=== PATIENT | male | born 1965 | race Caucasian/White ===

== ENCOUNTER 2019-09-09 13:31 | Emergency (ER) | payer BC ==
[2019-09-09 14:09] VITALS: BP 140/91; PULSE 90
--- NOTE | 2019-09-09 14:15 | EDM.PDOC ---
ED HPI GENERAL MEDICAL PROBLEM - General Chief Complaint: Headache Stated Complaint: SINUS INFECTION Time Seen by Provider: 09/09/19 14:14 Source of Information: Reports: Patient - History of Present Illness INITIAL COMMENTS - FREE TEXT/NARRATIVE: Very pleasant 54 yo male presents with 2 months of illness including vague mid to lower back pain, right elbow pain (likely repetitive use vs gout), headache, mild cough and sinus pressure and congestion. Patient has history of cough due to cholesterol medications to treat his elevated triglycerides. Patient was treated with Prednisone and did well 2 months ago. Patient had been taking OTC allergy medications to prevent infection/sinus concerns until the last 2 months. Patient has been fleeing under the weather for 2 months but has noted chills and sweats. Patient had a severe left temporal headache last night in bed which was the worst headache of his life (even worse than before infections/ surgery). Patient does not know of any aneurysm or intracranial abnormalities from previous studies but were a number of years ago. Face/Facial Pain Score (Numeric/FACES): 8 - Related Data Allergies Allergy/AdvReac Type Severity Reaction Status Date / Time No Known Allergies Allergy Verified 09/09/19 14:06 Home Meds: Home Meds Lisinopril [Prinivil] 10 mg PO DAILY 03/04/14 [History] Omeprazole Magnesium [Prilosec] 10 mg PO DAILY 03/04/14 [History] Amoxicillin/Clavulanate K [Augmentin 875-125 MG] 1 tab PO BID 10 Days #20 tablet 09/09/19 [Rx] Past Medical History HEENT History: Reports: Sinusitis Musculoskeletal History: Reports: Back Pain, Chronic - Past Surgical History HEENT Surgical History: Reports: Naso-Sinus Surgery Social & Family History - Tobacco Use Smoking Status *Q: Never Smoker ED ROS GENERAL - Review of Systems Review Of Systems: ROS reveals no pertinent complaints other than HPI. - Physical Exam Exam: See Below Exam Limited By: No Limitations General Appearance: Alert, WD/WN, Mild Distress Eye Exam: Bilateral Eye: EOMI, PERRL Ears: Normal External Exam (Left normal Right fullness noted. Slight pain behind right ear without erythema), Normal Canal, Hearing Grossly Normal Nose: Normal Inspection, Normal Mucosa, No Blood Throat/Mouth: Normal Inspection, Normal Lips, Normal Teeth, Normal Gums, Normal Oropharynx, Normal Voice, No Airway Compromise Head Exam: Atraumatic, Normocephalic, Facial Tenderness (left maxilla). No: Scalp Swelling, Scalp Tenderness (over left episcopal) Neck: Normal Inspection, Non-Tender, Full Range of Motion. No: Carotid Bruit Respiratory/Chest: No Respiratory Distress, Lungs Clear, Normal Breath Sounds Cardiovascular: Normal Peripheral Pulses, Regular Rate, Rhythm GI/Abdominal: Normal Bowel Sounds, Soft, Non-Tender Neuro Exam (Abbreviated): Alert, Oriented, CN II-XII Intact, Normal Cognition, Normal Gait, Normal Reflexes, No Motor/Sensory Deficits Back Exam: Normal Inspection, Full Range of Motion, NT Extremities: Normal Inspection, Normal Range of Motion, Non-Tender, No Pedal Edema, Normal Capillary Refill Psychiatric: Normal Affect, Normal Mood Skin Exam: Warm, Dry, Intact, Normal Color, No Rash Course - Vital Signs Last Recorded V/S: Last Vital Signs Temp 36.8 C 09/09/19 14:16 Pulse 90 09/09/19 14:16 Resp 17 09/09/19 14:16 BP 140/91 H 09/09/19 14:16 Pulse Ox 97 09/09/19 14:16 - Orders/Labs/Meds Orders: Active Orders 24 hr Category Date Time Status Max Facial Sinus wo Cont [CT] Stat Exams 09/09/19 14:46 Taken Labs: Laboratory Tests 09/09/19 09/09/19 Range/Units 15:02 15:02 WBC 8.3 (4.5-11.0) K/uL RBC 5.15 (4.30-5.90) M/uL Hgb 15.6 H (12.0-15.0) g/dL Hct 46.1 (40.0-54.0) % MCV 90 (80-98) fL MCH 30 (27-31) pg MCHC 34 (32-36) % Plt Count 198 (150-400) K/uL Neut % (Auto) 66 (36-66) % Lymph % (Auto) 20 L (24-44) % [place] % (Auto) 11 H (2-6) % Eos % (Auto) 3 (2-4) % Baso % (Auto) 0 (0-1) % ESR 10 (0-20) mm/hr Sodium 142 (140-148) mmol/L Potassium 4.1 (3.6-5.2) mmol/L Chloride 104 (100-108) mmol/L Carbon Dioxide 29 (21-32) mmol/L Anion Gap 9.1 (5.0-14.0) mmol/L BUN 10 (7-18) mg/dL Creatinine 0.9 (0.8-1.3) mg/dL Est Cr Clr Drug Dosing 101.10 mL/min Estimated GFR (MDRD) > 60 (>60) Glucose 112 H (74-106) mg/dL Calcium 8.8 (8.5-10.1) mg/dL Total Bilirubin 0.6 (0.2-1.0) mg/dL AST 14 L (15-37) U/L ALT 29 (12-78) U/L Alkaline Phosphatase 74 (46-116) U/L C-Reactive Protein 1.64 H (0.0-0.3) mg/dL Total Protein 6.8 (6.4-8.2) g/dL Albumin 3.7 (3.4-5.0) g/dL Globulin 3.1 (2.3-3.5) g/dL Albumin/Globulin Ratio 1.2 (1.2-2.2) Lipase 133 (73-393) U/L - Radiology Interpretation Free Text/Narrative:: CT Head: No acute intracranial abnormality to explain patient's symptoms. CT Max/Facial: Right OM and fluid in right mastoid air cells with possible mastoiditis. Chronic sinus mucosal fullness noted right greater than left. - Re-Assessments/Exams Free Text/Narrative Re-Assessment/Exam: Reviewed laboratory test results which are as expected with acute on chronic sinusitis with systemic symptoms elevated CRP, normal WBC, Normal renal, liver and pancreatitis testing. Radiology contacted regarding CT Head and Max/Facial to ensure completion. Patient left for CT a time of test review with . 09/09/19 16:00 Departure - Departure Time of Disposition: 17:00 Disposition: Home, Self-Care 01 Clinical Impression: Acute sinus infection, Sinusitis, Migraine, Otitis media, Mastoiditis, Cluster headache syndrome - Discharge Information Prescriptions: Amoxicillin/Clavulanate K [Augmentin 875-125 MG] 1 tab PO BID 10 Days #20 tablet Instructions: Otitis Media, Adult, [id number], Sinusitis, Adult, Cluster Headache, [id number], General Headache Without Cause, [id number], Tension Headache, Adult, Migraine Headache Referrals: Lei Horne MD [Primary Care Provider] - Forms: ED Department Discharge Additional Instructions: 1. TAKE ANTIBIOTIC DIRECTED. Augmentin as directed with food. 2. TAKE ANTIBIOTIC WITH FOOD MAY CAUSE UPSET STOMACH AND LOOSE STOOLS. 3. SALINE NASAL IRRIGATIONS IF ABLE TO TOLERATE BEFORE NASAL SPRAY. 4. WARM COMPRESS TO FACIAL AREA FOR PAIN AND PRESSURE 5. IBUPROFEN 800MG EVERY 6-8 HOURS WITH FOOD FOR SINUS PAIN, PRESSURE AND FEVER. 6. TYLENOL 500-1000MG EVERY 6-8 HOURS FOR FEVER AND PAIN. 7. SEE PCP IN 7-10 DAYS IF NOT IMPROVING OR SYMPTOMS CONTINUE. 8. RETURN TO ETC IF INCREASE CHANGES NEW OR WORSEN SYMPTOMS. 9. Consider Zyrtec 10mg 1-2 times days for chronic sinusitis, Flonase Nasal [place] every am and pm and Saline Washes for prevention of severe sinus infections. Discharge Instructions Sinus Infection You have acute sinusitis, or an infection of the sinuses. The sinuses are the hollow areas within the facial bones that are connected to the nasal opening. The most common cause of acute sinusitis is a virus infection associated with the common cold. Bacterial sinusitis occurs much less commonly, usually as a complication of viral sinusitis. Experts say that most sinusitis is caused by a virus within the first 7-10 days of illness. Antibiotics do nothing to help with virus infections, so most people do not need antibiotics for acute sinusitis. Generally, every Emergency Department visit should have a follow-up clinic visit with either a primary or a specialty clinic/provider. Please follow-up as instructed by your emergency provider today. Return to the Emergency Department if: Your vision changes. You are confused or have difficulty thinking clearly. You have swelling around your eye. You develop a severe headache or neck stiffness. Your symptoms get worse and you are unable to see your primary provider. Treatment: Pain reliefIbuprofen 600-800mg Non-prescription pain medications, such as Tylenol (acetaminophen) or Motrin or Advil (ibuprofen) are recommended for pain. Do not use a medicine that you are allergic to, or if your provider has told you not to use it. Nasal irrigationSaline washes. Flushing the nose and sinuses with a saline solution several times per day can help to decrease pain caused by congestion. Nasal decongestantsNasal decongestant sprays, including Afrin ( oxymetazoline) and Cristino-Synephrine (phenylephrine) can be used to temporarily treat congestion. However, these sprays should not be used for more than two to three days due to the risk of rebound congestion (when the nose is congested constantly unless the medication is used repeatedly). Nasal glucocorticoids FLONASEThese are prescription steroids delivered by a nasal spray that can help to reduce swelling inside the nose, usually within two to three days. These drugs have few side effects and dramatically relieve symptoms in most people. If you use these in conjunction with Afrin you will need to use at least 15 minutes prior to the nasal decongestant. Antibiotic?AUGMENTIN. Rarely antibiotics are used along with the above treatments. If you were given a prescription for medicine here today, be sure toread all of the information (including the package insert) that comes with your prescription. This will include important information about the medicine, its side effects, and any warnings that you need to know about. The pharmacist who fills the prescription can provide more information and answer questions you may have about the medicine. If you have questions or concerns that the pharmacist cannot address, please call or return to the Emergency Department. Remember that you can always come back to the Emergency Department if you are not able to see your regular provider in the amount of time listed above, if you get any new symptoms, or if there is anything that worries you. - Problem List & Annotations (1) Acute sinus infection SNOMED Code(s): 69219490 Code(s): J01.90 - ACUTE SINUSITIS, UNSPECIFIED Status: Acute Current Visit: Yes - My Orders Last 24 Hours: My Active Orders 09/09/19 14:46 Max Facial Sinus wo Cont [CT] Stat - Assessment/Plan Last 24 Hours: My Active Orders 09/09/19 14:46 Max Facial Sinus wo Cont [CT] Stat
--- NOTE | 2019-09-09 16:36 | CRLCT ---
INDICATION: Severe headache, worker worst ever. COMPARISON: None available. TECHNIQUE: CT examination of the head was performed with 3 mm thick axial sections without intravenous contrast. Images were obtained from the vertex of the skull through the skull base, and I examined the images with the brain and bone windows. Please note that all CT scans at this facility use dose modulation, iterative reconstruction, and/or weight-based dosing when appropriate to reduce radiation dose to as low as reasonably achievable. FINDINGS: : The brain is normal in appearance for the patient`s age on today`s study, with no sign of mass lesion, mass effect, hemorrhage, or edema. The ventricles and sulci are normal in appearance for the patient`s age. The visualized portions of the orbits are normal in appearance. There is mild mucosal thickening scattered throughout the ethmoids from mild chronic sinusitis. There is minimal mucosal thickening in the right sphenoid from mild chronic sinusitis. The rest of the visualized portions of the paranasal sinuses and left mastoid are clear. There is prominent opacification of the right mastoid consistent with prominent mastoiditis. Fluid is also seen around the ossicles in the right middle ear cavity, consistent with mild otitis media. The osseous structures are normal in their appearance with no sign of abnormality in the skull base or calvarium. IMPRESSION: Normal noncontrast CT of the brain for the patient`s age with nothing seen to suggest a cause for the patient`s headache. Prominent right mastoid opacification from mastoiditis. Mild right otitis media. Mild chronic bilateral ethmoid and right sphenoid sinusitis. Please note that all CT scans at this facility use dose modulation, iterative reconstruction, and/or weight-based dosing when appropriate to reduce radiation dose to as low as reasonably achievable. Dictated by Javier Maxwell MD @ Sep 09 2019 4:31PM Signed by Dr. Javier Maxwell @ Sep 09 2019 4:34PM
--- NOTE | 2019-09-09 17:00 | CRLCT ---
INDICATION: Left facial headaches, history of sinus infections and surgery. TECHNIQUE: CT facial bones without contrast. COMPARISON: None FINDINGS: Subcutaneous soft tissues: No asymmetrical soft tissue swelling or hematoma. Osseous structures: No fractures. Paranasal sinuses and mastoids: Frontal sinuses are clear. Mild mucosal thickening the ethmoid air cells. Minimal mucosal thickening of the maxillary sinuses and right sphenoid sinus. The sphenoid ethmoidal recesses appear opacified bilaterally. Left mastoid air cells are well aerated. There is opacification of the right mastoid air cells and the right middle ear, as noted on recently performed head CT. Nasal septum is midline. Orbits: The globes are intact. Extraocular muscles and retrobulbar fat within normal limits. Optic nerve sheath complexes normal in morphology. Visualized intracranial contents: Please refer to concurrently performed head CTA. IMPRESSION: 1. Opacification of the right mastoid air cells and right middle ear, consistent with otomastoiditis. 2. Mild paranasal sinus mucosal disease, as described. No air-fluid levels or frothy secretions within the paranasal sinuses to suggest sinusitis. Dictated by Candace Marie MD @ 09/09/2019 4:57:44 PM Please note that all CT scans at this facility use dose modulation, iterative reconstruction, and/or weight-based dosing when appropriate to reduce radiation dose to as low as reasonably achievable. Dictated by: Candace Marie MD @ 09/09/2019 16:57:52 (Electronically Signed)
== END 2019-09-09 17:02 | disposition home or self-care (01) ==
LOC: JP.ED 13:31
DX: J01.90 Acute sinusitis, unspecified (principal); G43.909 Migraine, unspecified, not intractable, without status migrainosus; H70.90 Unspecified mastoiditis, unspecified ear; G44.009 Cluster headache syndrome, unspecified, not intractable; H66.91 Otitis media, unspecified, right ear
CPT/HCPCS: 36415; 70450; 70486; 80053; 83690; 85025; 85651; 86140; 99284-25

== ENCOUNTER 2020-02-22 03:14 | Emergency (ER) | payer BC ==
[2020-02-22 03:29] VITALS: BP 135/98; PULSE 90
[2020-02-22] MEDS ORDERED: Aspirin 81 MG Tab.Chew PO ONE (03:47)
--- NOTE | 2020-02-22 03:51 | EDM.PDOC ---
ED HPI GENERAL MEDICAL PROBLEM - General Chief Complaint: Chest Pain Stated Complaint: CHEST PAINS Time Seen by Provider: 02/22/20 03:41 Source of Information: Reports: Patient, RN Notes Reviewed History Limitations: Reports: No Limitations - History of Present Illness INITIAL COMMENTS - FREE TEXT/NARRATIVE: 54-year-old gentleman presents emergency department a complaint of chest pain and palpitations, he states this happened about 2 hours prior with awoke from sleep was diaphoretic he felt short of breath no nausea did feel some diaphoresis he has no cardiac history family history mother with atrial fibrillation. At this time he is asymptomatic and chest pain-free denies pain Pain Score (Numeric/FACES): 0 - Related Data Allergies Allergy/AdvReac Type Severity Reaction Status Date / Time No Known Allergies Allergy Verified 02/22/20 03:25 Home Meds: Home Meds Omeprazole Magnesium [Prilosec] 10 mg PO DAILY 03/04/14 [History] lisinopriL [Prinivil] 10 mg PO DAILY 03/04/14 [History] Past Medical History HEENT History: Reports: Sinusitis Musculoskeletal History: Reports: Back Pain, Chronic - Past Surgical History HEENT Surgical History: Reports: Naso-Sinus Surgery Neurological Surgical History: Reports: Laminectomy Social & Family History - Family History Family Medical History: Unobtainable - Tobacco Use Smoking Status *Q: Never Smoker Second Hand Smoke Exposure: No - Caffeine Use Caffeine Use: Reports: Coffee - Alcohol Use Days Per Week of Alcohol Use: 7 Number of Drinks Per Day: 4 Total Drinks Per Week: 28 - Recreational Drug Use Recreational Drug Use: No ED ROS GENERAL - Review of Systems Review Of Systems: See Below Constitutional: Reports: Diaphoresis HEENT: Reports: No Symptoms Respiratory: Reports: Shortness of Breath Cardiovascular: Reports: Chest Pain, Palpitations GI/Abdominal: Reports: No Symptoms : Reports: No Symptoms Musculoskeletal: Reports: No Symptoms ED EXAM, GENERAL - Physical Exam Exam: See Below Exam Limited By: No Limitations General Appearance: Alert, WD/WN, No Apparent Distress Eye Exam: Bilateral Eye: Normal Inspection Head: Atraumatic, Normocephalic Neck: Normal Inspection, Supple, Non-Tender, Full Range of Motion Respiratory/Chest: No Respiratory Distress, Lungs Clear, Normal Breath Sounds, No Accessory Muscle Use, Chest Non-Tender Cardiovascular: Regular Rate, Rhythm, No Murmur GI/Abdominal: Soft, Non-Tender Extremities: Normal Inspection, No Pedal Edema Course - Vital Signs Last Recorded V/S: Last Vital Signs Temp 98.2 F 02/22/20 03:25 Pulse 90 02/22/20 03:27 Resp 12 02/22/20 03:27 BP 135/98 H 02/22/20 03:27 Pulse Ox 97 02/22/20 03:27 - Orders/Labs/Meds Orders: Active Orders 24 hr Category Date Time Status Cardiac Monitoring [RC] .As Directed Care 02/22/20 03:47 Active EKG Documentation Completion [RC] ASDIRECTED Care 02/22/20 03:47 Active Chest 1V Frontal [CR] Stat Exams 02/22/20 03:47 Taken EKG 12 Lead [EK] Stat Ther 02/22/20 03:47 Ordered Labs: Laboratory Tests 02/22/20 02/22/20 Range/Units 03:56 03:56 WBC 6.2 (4.5-11.0) K/uL RBC 5.18 (4.30-5.90) M/uL Hgb 16.0 H (12.0-15.0) g/dL Hct 46.1 (40.0-54.0) % MCV 89 (80-98) fL MCH 31 (27-31) pg MCHC 35 (32-36) % Plt Count 170 (150-400) K/uL Neut % (Auto) 56 (36-66) % Lymph % (Auto) 29 (24-44) % [place] % (Auto) 10 H (2-6) % Eos % (Auto) 4 (2-4) % Baso % (Auto) 1 (0-1) % Sodium 140 (140-148) mmol/L Potassium 3.8 (3.6-5.2) mmol/L Chloride 104 (100-108) mmol/L Carbon Dioxide 26 (21-32) mmol/L Anion Gap 9.9 (5.0-14.0) mmol/L BUN 17 D (7-18) mg/dL Creatinine 0.9 (0.8-1.3) mg/dL Est Cr Clr Drug Dosing 98.01 mL/min Estimated GFR (MDRD) > 60 (>60) Glucose 106 (74-106) mg/dL Calcium 8.8 (8.5-10.1) mg/dL Total Bilirubin 0.6 (0.2-1.0) mg/dL AST 24 (15-37) U/L ALT 58 D (12-78) U/L Alkaline Phosphatase 59 (46-116) U/L Troponin I < 0.017 (0.000-0.056) ng/mL Total Protein 6.2 L (6.4-8.2) g/dL Albumin 3.4 (3.4-5.0) g/dL Globulin 2.8 (2.3-3.5) g/dL Albumin/Globulin Ratio 1.2 (1.2-2.2) Meds: Medications Discontinued Medications Generic Name Dose Route Start Last Admin Trade Name Freq PRN Reason Stop Dose Admin Aspirin 324 mg 02/22/20 03:47 02/22/20 03:53 Aspirin PO 02/22/20 03:48 324 mg ONETIME ONE Administration Departure - Departure Time of Disposition: 04:34 Disposition: Home, Self-Care 01 Condition: Fair Clinical Impression: Palpitations Instructions: Palpitations, [id number] Referrals: PCP,None [Primary Care Provider] - Forms: ED Department Discharge Additional Instructions: Continue with regular medications, please followup with your primary care provider in 3-5 days if not better, please call return to the emergency department with worsening of symptoms. Sepsis Event Note - Evaluation Sepsis Screening Result: No Definite Risk - Focused Exam Vital Signs: Vital Signs Temp Pulse Resp BP Pulse Ox 02/22/20 03:27 90 12 135/98 H 97 02/22/20 03:25 98.2 F 89 13 141/102 H 98 02/22/20 03:23 98.2 F 89 13 141/102 H 98 Date Exam was Performed: 02/22/20 Time Exam was Performed: 04:32 - My Orders Last 24 Hours: My Active Orders 02/22/20 03:47 Cardiac Monitoring [RC] .As Directed EKG Documentation Completion [RC] ASDIRECTED Chest 1V Frontal [CR] Stat EKG 12 Lead [EK] Stat - Assessment/Plan Last 24 Hours: My Active Orders 02/22/20 03:47 Cardiac Monitoring [RC] .As Directed EKG Documentation Completion [RC] ASDIRECTED Chest 1V Frontal [CR] Stat EKG 12 Lead [EK] Stat Plan: Assessment Acuity = acute Site and laterality = palpitations Etiology = unknown Manifestations = none Location of injury = Home Lab values = CBC, CMP, troponin all within normal limits EKG demonstrates normal sinus rhythm chest x-ray I did review films myself I cannot appreciate any acute process, the official read from radiology is pending Plan Discussed various possibilities without being able to capture the rhythm is unknown recommend follow-up with primary care consider Holter monitor with any recurring events This note was dictated using [employer] voice recognition software please call with any questions on syntax or grammar.
--- NOTE | 2020-02-22 11:17 | CR ---
CHEST: Portable 02/22/2020 and 0409 CLINICAL HISTORY:Chest pain COMPARISON:2014 FINDINGS: The heart size, pulmonary vascularity and hilar structures are normal. No infiltrate effusion or pneumothorax is seen. IMPRESSION: No acute cardiopulmonary process.
== END 2020-02-22 04:40 | disposition home or self-care (01) ==
LOC: JP.ED 03:14
DX: R00.2 Palpitations (principal); Z79.899 Other long term (current) drug therapy
CPT/HCPCS: 36415; 71045; 80053; 84484; 85025; 93005; 99285; A9270

== ENCOUNTER 2021-03-01 04:49 | Emergency (ER) | payer BC ==
[~2021-03-01 04:49] MED LIST: Ondansetron 4 MG/2 ML SDV ONE
[2021-03-01] MEDS ORDERED: Ondansetron 4 MG/2 ML SDV IVPUSH ONE (04:52)
[2021-03-01] MEDS ORDERED: Sodium Chloride 0.9% 1,000 ML IV ONE ×2 (04:58→06:20)
--- NOTE | 2021-03-01 04:58 | EDM.PDOC ---
ED HPI GENERAL MEDICAL PROBLEM - General Chief Complaint: Gastrointestinal Problem Stated Complaint: MEDICAL VIA [facility] Time Seen by Provider: 03/01/21 04:51 Source of Information: Reports: Patient, EMS History Limitations: Reports: No Limitations - History of Present Illness INITIAL COMMENTS - FREE TEXT/NARRATIVE: Celsa is a 56-year-old male presenting to the ED for evaluation of bright red blood per rectum. Patient was in his usual state of health until he went to have a bowel movement tonight and found a sufficient amount of blood in the toilet that was bright red. Patient recently underwent a colonoscopy at [place] from [facility] that he had 7 polyps identified and is status post polypectomy. Tonight he was visiting with friends and consumed 4 to 5 cans of beer, ate a pork steak, and then had some toast with jelly. Around 330 the patient got up to use the bathroom as he was feeling unwell and felt like he had to have a bowel movement. That is when he noticed the bright red blood. He apparently beeping diaphoretic and pale and started to have some generalized weakness. EMS was contacted and on their arrival they found him to have a systolic blood pressure of 94 with pallor and diaphoresis. Patient had difficulty with ambulating because of the generalized weakness but did improve after an IV was started and he started receiving fluids. In route to the hospital he was in normal sinus rhythm and his blood pressure improved to a systolic of 124. Upon arrival to the ED he again became quite nauseous and vomited about 500 cc of emesis. Initial vitals in the ED is blood pressure is 92/54 with a pulse of 85 satting 94% on room air. - Related Data Allergies Allergy/AdvReac Type Severity Reaction Status Date / Time No Known Allergies Allergy Verified 03/01/21 04:51 Home Meds: Home Meds Omeprazole Magnesium [Prilosec] 20 mg PO DAILY 03/04/14 [History] lisinopriL [Prinivil] 20 mg PO DAILY 03/04/14 [History] Past Medical History HEENT History: Reports: Sinusitis Musculoskeletal History: Reports: Back Pain, Chronic - Past Surgical History HEENT Surgical History: Reports: Naso-Sinus Surgery Neurological Surgical History: Reports: Laminectomy Social & Family History - Family History Family Medical History: Unobtainable - Caffeine Use Caffeine Use: Reports: Coffee ED ROS GENERAL - Review of Systems Review Of Systems: See Below Constitutional: Reports: Weakness, Diaphoresis HEENT: Reports: No Symptoms Respiratory: Reports: No Symptoms Cardiovascular: Reports: No Symptoms Endocrine: Reports: No Symptoms GI/Abdominal: Reports: Hematochezia, Nausea, Vomiting Musculoskeletal: Reports: No Symptoms Skin: Reports: Pallor Neurological: Reports: Weakness (Generalized) Psychiatric: Reports: Anxiety Hematologic/Lymphatic: Reports: No Symptoms Immunologic: Reports: No Symptoms ED EXAM, GI/ABD - Physical Exam Exam: See Below Exam Limited By: No Limitations General Appearance: Alert, Anxious, Mild Distress Eyes: Bilateral: EOMI Throat/Mouth: Normal Inspection, Normal Lips, Normal Oropharynx, Normal Voice, No Airway Compromise Head: Atraumatic, Normocephalic Neck: Normal Inspection, Supple Respiratory/Chest: No Respiratory Distress, Lungs Clear, Normal Breath Sounds Cardiovascular: Normal Peripheral Pulses, Regular Rate, Rhythm, No Murmur GI/Abdominal Exam: Normal Bowel Sounds, Soft, Non-Tender, Other (Supraumbilical ventral hernia). No: Guarding, Rebound Rectal (Males) Exam: Bloody Stool Back Exam: Normal Inspection, Full Range of Motion Extremities: Normal Inspection, Normal Range of Motion Neurological: Alert, Oriented, Normal Cognition, No Motor/Sensory Deficits Psychiatric: Normal Affect Skin Exam: Warm, Dry, Intact, Normal Color Lymphatic: No Adenopathy Course - Vital Signs Last Recorded V/S: Last Vital Signs Temp 36.0 C L 03/01/21 04:52 Pulse 83 03/01/21 05:26 Resp 18 03/01/21 04:52 BP 103/63 03/01/21 05:26 Pulse Ox 92 L 03/01/21 04:52 - Orders/Labs/Meds Orders: Active Orders 24 hr Category Date Time Status INR,PT,PROTHROMBIN TIME [COAG] Stat Lab 03/01/21 05:10 Received PATIENT RETYPE [BBK] Stat Lab 03/01/21 05:10 Results PTT,PARTIAL THROMBOPLSTIN TIME [COAG] Stat Lab 03/01/21 05:10 Received TYPE AND SCREEN [BBK] Stat Lab 03/01/21 05:10 Results Pantoprazole [ProTONIX IV] Med 03/01/21 05:15 Active 80 mg IVPUSH .BOLUS Medication Orders Pantoprazole Sodium (Pantoprazole 40 Mg Vial) 80 mg IVPUSH .BOLUS CATHI Last Admin: 03/01/21 05:27 Dose: 80 mg Documented by: MARIA TERESA Labs: Laboratory Tests 03/01/21 03/01/21 03/01/21 Range/Units 05:10 05:10 05:10 WBC 6.8 (4.5-11.0) K/uL RBC 4.62 (4.30-5.90) M/uL Hgb 14.5 (12.0-15.0) g/dL Hct 41.4 (40.0-54.0) % MCV 90 (80-98) fL MCH 31 (27-31) pg MCHC 35 (32-36) % Plt Count 164 (150-400) K/uL Neut % (Auto) 74 H (36-66) % Lymph % (Auto) 16 L (24-44) % [place] % (Auto) 9 H (2-6) % Eos % (Auto) 2 (2-4) % Baso % (Auto) 0 (0-1) % Sodium 149 H (140-148) mmol/L Potassium 4.0 (3.6-5.2) mmol/L Chloride 107 (100-108) mmol/L Carbon Dioxide 26 (21-32) mmol/L Anion Gap 20.0 H (5.0-14.0) mmol/L BUN 14 (7-18) mg/dL Creatinine 0.9 (0.8-1.3) mg/dL Est Cr Clr Drug Dosing 95.76 mL/min Estimated GFR (MDRD) > 60 (>60) Glucose 108 H (74-106) mg/dL Calcium 8.9 (8.5-10.1) mg/dL Total Bilirubin 0.6 (0.2-1.0) mg/dL AST 18 (15-37) U/L ALT 49 (12-78) U/L Alkaline Phosphatase 51 (46-116) U/L Total Protein 5.8 L (6.4-8.2) g/dL Albumin 3.2 L (3.4-5.0) g/dL Globulin 2.6 (2.3-3.5) g/dL Albumin/Globulin Ratio 1.2 (1.2-2.2) Lipase 131 (73-393) U/L Ethyl Alcohol 29 mg/dL Blood Type Gel Antibody Screen 03/01/21 Range/Units 05:10 WBC (4.5-11.0) K/uL RBC (4.30-5.90) M/uL Hgb (12.0-15.0) g/dL Hct (40.0-54.0) % MCV (80-98) fL MCH (27-31) pg MCHC (32-36) % Plt Count (150-400) K/uL Neut % (Auto) (36-66) % Lymph % (Auto) (24-44) % [place] % (Auto) (2-6) % Eos % (Auto) (2-4) % Baso % (Auto) (0-1) % Sodium (140-148) mmol/L Potassium (3.6-5.2) mmol/L Chloride (100-108) mmol/L Carbon Dioxide (21-32) mmol/L Anion Gap (5.0-14.0) mmol/L BUN (7-18) mg/dL Creatinine (0.8-1.3) mg/dL Est Cr Clr Drug Dosing mL/min Estimated GFR (MDRD) (>60) Glucose (74-106) mg/dL Calcium (8.5-10.1) mg/dL Total Bilirubin (0.2-1.0) mg/dL AST (15-37) U/L ALT (12-78) U/L Alkaline Phosphatase (46-116) U/L Total Protein (6.4-8.2) g/dL Albumin (3.4-5.0) g/dL Globulin (2.3-3.5) g/dL Albumin/Globulin Ratio (1.2-2.2) Lipase (73-393) U/L Ethyl Alcohol mg/dL Blood Type B POSITIVE Gel Antibody Screen Negative Meds: Medications Generic Name Dose Route Start Last Admin Trade Name Freq PRN Reason Stop Dose Admin Pantoprazole Sodium 80 mg 03/01/21 05:15 03/01/21 05:27 Pantoprazole 40 Mg Vial IVPUSH 80 mg .BOLUS CATHI Administration Discontinued Medications Generic Name Dose Route Start Last Admin Trade Name Freq PRN Reason Stop Dose Admin Pantoprazole Sodium 80 mg/ 100 mls @ 200 mls/hr 03/01/21 05:00 Sodium Chloride IV .BOLUS CATHI Sodium Chloride 1,000 mls @ 999 mls/hr 03/01/21 04:58 03/01/21 05:14 Normal Saline IV 03/01/21 05:58 999 mls/hr .BOLUS ONE Administration Ondansetron HCl 8 mg 03/01/21 04:52 03/01/21 05:00 Ondansetron 4 Mg/2 Ml Sdv IVPUSH 03/01/21 04:53 8 mg ONETIME ONE Administration Pantoprazole Sodium Confirm 03/01/21 05:22 03/01/21 05:29 Pantoprazole 40 Mg Vial Administered 03/01/21 05:23 Not Given Dose 80 mg .ROUTE .[facility] ONE - Re-Assessments/Exams Free Text/Narrative Re-Assessment/Exam: 03/01/21 05:30 I reviewed the patient's labs and his initial hemoglobin is 14.5. The patient does have bright red blood on the glove. He may have had several vasovagal episodes causing his hypotension and diaphoresis. He has been doing somewhat better since receiving Zofran 8 mg IV push and having the large volume emesis of 500 cc of stomach contents. I discussed the case with Dr. Guillory who feels that I should send him back to [facility] where he had the colonoscopy performed as a new what had occurred and what was done. The patient remains vitally stable although his pressures are at the 88/68 and a pulse rate of 85. 03/01/21 05:59 I discussed the case with Dr. Zambrano in the ER at [facility] who accepts the patient in transfer for further evaluation. He had spoken with the surgeon who had done the colonoscopy who is on-call today and is anticipating an evaluation of the patient when he arrives to the ED. We will have [facility] provide transport to [facility] ER. Departure - Departure Time of Disposition: 06:04 Disposition: DC/Tfer to Acute Hospital 02 Clinical Impression: Rectal bleeding, Status post colonoscopy with polypectomy - Discharge Information Referrals: Lei Horne MD [Primary Care Provider] - Forms: ED Department Discharge Sepsis Event Note (ED) - Focused Exam Vital Signs: Vital Signs Temp Pulse Resp BP Pulse Ox 03/01/21 05:26 83 103/63 03/01/21 04:52 36.0 C L 85 18 92/58 L 92 L - My Orders Last 24 Hours: My Active Orders 03/01/21 05:10 INR,PT,PROTHROMBIN TIME [COAG] Stat PATIENT RETYPE [BBK] Stat PTT,PARTIAL THROMBOPLSTIN TIME [COAG] Stat TYPE AND SCREEN [BBK] Stat 03/01/21 05:15 Pantoprazole [ProTONIX IV] 80 mg IVPUSH .BOLUS - Assessment/Plan Last 24 Hours: My Active Orders 03/01/21 05:10 INR,PT,PROTHROMBIN TIME [COAG] Stat PATIENT RETYPE [BBK] Stat PTT,PARTIAL THROMBOPLSTIN TIME [COAG] Stat TYPE AND SCREEN [BBK] Stat 03/01/21 05:15 Pantoprazole [ProTONIX IV] 80 mg IVPUSH .BOLUS
[2021-03-01] MEDS ORDERED: Pantoprazole 80 MG in Sodium Chloride 0.9% 100 ML IV SCH (05:00)
[2021-03-01] MEDS ORDERED: Pantoprazole 40 MG Vial IVPUSH SCH (05:15)
[2021-03-01] MEDS ORDERED: Pantoprazole 40 MG Vial ONE (05:22)
[2021-03-01] MEDS ORDERED: Tranexamic Acid 1,000 MG in Sodium Chloride 0.9% 50 ML IV ONE (06:32)
[2021-03-01] MEDS ORDERED: Tranexamic Acid 1,000 MG in Sodium Chloride 0.9% 500 ML IV ONE (06:32)
[2021-03-01] MEDS ORDERED: Tranexamic Acid 1,000 MG in Sodium Chloride 0.9% 50 ML IVPUSH ONE (06:44)
[2021-03-01] MEDS ORDERED: Prochlorperazine 10 MG/2 ML SDV IVPUSH ONE (06:48)
[2021-03-01] MEDS ORDERED: Prochlorperazine 10 MG/2 ML SDV ONE (06:49)
[2021-03-01 07:18] VITALS: BP 123/87; PULSE 96
== END 2021-03-01 07:19 ==
LOC: JP.ED 04:49
DX: K62.5 Hemorrhage of anus and rectum (principal); Z98.890 Other specified postprocedural states; Z79.899 Other long term (current) drug therapy
CPT/HCPCS: 36415; 80053; 80307; 83690; 85025; 85610; 85730; 86850; 86900; 86901; 96365; 96366; 96375; 99285; C9113; J0780; J2405; J7030; J7040

== ENCOUNTER 2021-09-23 14:47 | Emergency (ER) | payer BC ==
[2021-09-23 15:53] VITALS: BP 116/63; PULSE 79
--- NOTE | 2021-09-23 15:58 | EDM.PDOC ---
ED HPI GENERAL MEDICAL PROBLEM - General Chief Complaint: Chest Pain Stated Complaint: TIGHTNESS IN CHEST, PAIN LT ARM Time Seen by Provider: 09/23/21 15:15 Source of Information: Reports: Patient History Limitations: Reports: No Limitations - History of Present Illness INITIAL COMMENTS - FREE TEXT/NARRATIVE: 56-year-old male with no previous cardiac history, presents with several days of fluttering in his chest, mild chest pressure and burning with intermittent radiation to the left arm. He is under a lot of stress, and most of the pain and symptoms are occurring while he is at rest or in the morning. He is very active, when he is up doing things such as hunting or working in the yard he has very little if any symptoms. He had an angiogram a year ago for a work-up to document his health prior to purchasing an airplane. This was negative. At times he has shortness of breath with the pain, at times he does not. Here in the emergency room he is basically asymptomatic. An EKG was done on arrival which was normal. Onset: Unknown/Unsure Duration: Waxing/Waning, Other (Symptoms for several weeks) Location: Reports: Chest, Upper Extremity, Left Quality: Reports: Ache, Burning Associated Symptoms: Reports: Chest Pain, Malaise, Shortness of Breath. Denies: Confusion, Diaphoresis, Fever/Chills, Nausea/Vomiting - Related Data Allergies Allergy/AdvReac Type Severity Reaction Status Date / Time No Known Allergies Allergy Verified 09/23/21 14:56 Home Meds: Home Meds Omeprazole Magnesium [Prilosec] 20 mg PO DAILY 03/04/14 [History] lisinopriL [Prinivil] 20 mg PO DAILY 03/04/14 [History] Past Medical History HEENT History: Reports: Sinusitis Cardiovascular History: Reports: Hypertension Gastrointestinal History: Reports: GERD, GI Bleed, Hiatal Hernia Genitourinary History: Reports: Other (See Below) Other Genitourinary History: enlarged prostate Musculoskeletal History: Reports: Back Pain, Chronic, Fracture Other Musculoskeletal History: fx r arm - Infectious Disease History Infectious Disease History: Reports: Chicken Pox - Past Surgical History HEENT Surgical History: Reports: Naso-Sinus Surgery GI Surgical History: Reports: Colonoscopy, Polypectomy Neurological Surgical History: Reports: Laminectomy Social & Family History - Family History Family Medical History: Unobtainable - Tobacco Use Tobacco Use Status *Q: Current Every Day Tobacco User Years of Tobacco use: 7 Packs/Tins Daily: 1 Used Tobacco, but Quit: Yes Month/Year Tobacco Last Used: 08/1997 - Caffeine Use Caffeine Use: Reports: Coffee - Alcohol Use Number of Drinks Per Day: 2 - Recreational Drug Use Recreational Drug Use: No ED ROS GENERAL - Review of Systems Review Of Systems: See Below Constitutional: Reports: Malaise. Denies: Fever, Chills HEENT: Reports: No Symptoms Respiratory: Reports: Shortness of Breath Cardiovascular: Reports: Chest Pain, Palpitations GI/Abdominal: Denies: Abdominal Pain, Nausea, Vomiting : Reports: No Symptoms Musculoskeletal: Reports: No Symptoms Skin: Reports: No Symptoms. Denies: Diaphoresis Neurological: Reports: No Symptoms. Denies: Headache, Numbness Psychiatric: Reports: Anxiety ED EXAM, GENERAL - Physical Exam Exam: See Below Exam Limited By: No Limitations General Appearance: Alert, Anxious Eye Exam: Bilateral Eye: Normal Inspection Head: Atraumatic Neck: Supple, Non-Tender Respiratory/Chest: Lungs Clear Cardiovascular: Regular Rate, Rhythm GI/Abdominal: Soft, Non-Tender Extremities: Normal Inspection Neurological: Alert, Oriented, No Motor/Sensory Deficits Psychiatric: Normal Affect, Normal Mood Skin Exam: Warm, Dry #1 Interpretation EKG Date: 09/23/21 Rhythm: NSR Course - Vital Signs Last Recorded V/S: Last Vital Signs Temp 97.9 F 09/23/21 15:04 Pulse 79 09/23/21 15:52 Resp 23 H 09/23/21 15:52 BP 116/63 09/23/21 15:52 Pulse Ox 95 09/23/21 15:52 - Orders/Labs/Meds Orders: Active Orders 24 hr Category Date Time Status EKG 12 Lead [EK] Routine Ther 09/23/21 15:03 Ordered Labs: Laboratory Tests 09/23/21 09/23/21 Range/Units 15:42 15:42 WBC 9.1 (4.5-11.0) K/uL RBC 5.28 (4.30-5.90) M/uL Hgb 16.4 H (12.0-15.0) g/dL Hct 46.4 (40.0-54.0) % MCV 88 (80-98) fL MCH 31 (27-31) pg MCHC 35 (32-36) % Plt Count 185 (150-400) K/uL Neut % (Auto) 67.1 H (36-66) % Lymph % (Auto) 21.3 L (24-44) % [place] % (Auto) 9.9 H (2-6) % Eos % (Auto) 1.4 L (2-4) % Baso % (Auto) 0.3 (0-1) % Sodium 143 (140-148) mmol/L Potassium 4.2 (3.6-5.2) mmol/L Chloride 106 (100-108) mmol/L Carbon Dioxide 27 (21-32) mmol/L Anion Gap 10.1 (5.0-14.0) mmol/L BUN 10 (7-18) mg/dL Creatinine 0.9 (0.8-1.3) mg/dL Est Cr Clr Drug Dosing 95.76 mL/min Estimated GFR (MDRD) > 60 (>60) Glucose 87 (74-106) mg/dL Calcium 8.8 (8.5-10.1) mg/dL Troponin I < 0.017 (0.000-0.056) ng/mL - Re-Assessments/Exams Free Text/Narrative Re-Assessment/Exam: 09/23/21 15:58 EKG on arrival is negative. Symptoms are very atypical for cardiac pain, especially if worse at rest and in light of a normal angiogram just 1 year ago. CBC BMP and troponin were drawn. Patient was kept on cardiac monitoring waiting for labs. He remained in a normal sinus rhythm. 09/23/21 16:16 All labs were normal, troponin was 0. Patient was reassured and can follow-up as needed. Departure - Departure Time of Disposition: 16:25 Disposition: Home, Self-Care 01 Clinical Impression: Atypical chest pain, Palpitations - Discharge Information Instructions: Nonspecific Chest Pain, Adult, [id number], Palpitations, [id number] Referrals: PCP,None [Primary Care Provider] - Forms: ED Department Discharge Care Plan Goals: Continue any current medications, activity as tolerated consider a Holter m onitor in the near future if palpitations persist. Return anytime if you have persistent irregular heartbeat or chest pain. Sepsis Event Note (ED) - Focused Exam Vital Signs: Vital Signs Temp Pulse Resp BP Pulse Ox 09/23/21 15:52 79 23 H 116/63 95 09/23/21 15:22 84 24 H 130/94 H 96 09/23/21 15:04 97.9 F 92 20 148/98 H 96 09/23/21 14:57 97.9 F 92 148/98 H 96 - My Orders Last 24 Hours: My Active Orders 09/23/21 15:03 EKG 12 Lead [EK] Routine - Assessment/Plan Last 24 Hours: My Active Orders 09/23/21 15:03 EKG 12 Lead [EK] Routine
== END 2021-09-23 16:25 | disposition home or self-care (01) ==
LOC: JP.ED 14:47
DX: R07.89 Other chest pain (principal); R00.2 Palpitations; I10 Essential (primary) hypertension; K21.9 Gastro-esophageal reflux disease without esophagitis; Z79.899 Other long term (current) drug therapy; Z72.0 Tobacco use
CPT/HCPCS: 36415; 80048; 84484; 85025; 93005; 99285-25

== ENCOUNTER 2022-04-26 19:18 | Emergency (ER) | payer BC ==
[2022-04-26 19:41] VITALS: BP 117/85; PULSE 88
[2022-04-26 20:20] LABS: ESTIMATED GFR 100 mL/min (>60)
[2022-04-30 14:11] LABS: BABESIA MICROTI IGG <1:10 (Neg:<1:10); BABESIA MICROTI IGM <1:10 (Neg:<1:10)
== END 2022-04-26 20:59 | disposition home or self-care (01) ==
LOC: JP.ED 19:18
DX: J10.1 Influenza due to other identified influenza virus with other respiratory manifestations (principal); L23.7 Allergic contact dermatitis due to plants, except food; I10 Essential (primary) hypertension; K21.9 Gastro-esophageal reflux disease without esophagitis; Z79.899 Other long term (current) drug therapy; Z20.822 Contact with and (suspected) exposure to COVID-19
CPT/HCPCS: 80053; 85025; 86140; 86618; 86666; 86753; 86788; 86789; 99282; 99283; U0002

== ENCOUNTER 2023-10-20 15:06 | Emergency (ER) | payer BC ==
[2023-10-20 15:24] VITALS: BP 153/97; PULSE 79
[2023-10-20 16:16] LABS: BASOPHILS ABSOLUTE AUTO 0.03 K/uL (0.00-0.10); BASOPHILS PERCENT AUTO 0.4 % (0.1-1.3); EOSINOPHILS ABSOLUTE AUTO 0.17 K/uL (0.00-0.40); EOSINOPHILS PERCENT AUTO 2.3 % (0.0-5.4); HEMATOCRIT 46.9 % (38.4-49.7); HEMOGLOBIN 16.6 g/dL (12.9-16.9); IMMATURE GRAN ABSOLUTE AUTO 0.07 K/uL (0.00-0.23); IMMATURE GRAN PERCENT AUTO 0.9 % (0.0-0.7); LYMPHOCYTES ABSOLUTE AUTO 1.68 K/uL (0.8-3.3); LYMPHOCYTES PERCENT AUTO 22.3 % (11.4-47.7); MEAN CORPUSCULAR HEMOGLOBIN 31.4 pg (31.6-35.5); MEAN CORPUSCULAR HGB CONC 35.4 g/dL (31.6-35.5); MEAN CORPUSCULAR VOLUME 88.8 fL (81.4-99.0); MONOCYTES ABSOLUTE AUTO 0.58 K/uL (0.20-0.90); MONOCYTES PERCENT AUTO 7.7 % (3.3-12.6); NEUTROPHILS ABSOLUTE AUTO 4.99 K/uL (1.0-7.6); NEUTROPHILS PERCENT AUTO 66.4 % (40.0-78.1); PLATELET COUNT,PLT 167 K/uL (130-375); RED BLOOD CELL COUNT 5.28 M/uL (4.14-5.76); WHITE BLOOD CELL COUNT,WBC 7.5 K/uL (3.2-11.0)
[2023-10-20 16:37] LABS: A/G RATIO 1.2 (1.2-2.2); ALANINE AMINOTRANSFERASE,ALT 52 U/L (12-78); ALBUMIN 3.7 g/dL (3.4-5.0); ALKALINE PHOSPHATASE 66 U/L (46-116); ASPARTATE AMNIOTRANSFERASE,AST 25 U/L (15-37); BILIRUBIN TOTAL 0.7 mg/dL (0.2-1.0); BLOOD UREA NITROGEN,BUN 13 mg/dL (7-18); CALCIUM 8.9 mg/dL (8.5-10.1); CARBON DIOXIDE,CO2 31 mmol/L (21-32); CHLORIDE,CL 102 mmol/L (100-108); ESTIMATED GFR 88 mL/min (>60); GLUCOSE RANDOM 119 mg/dL (74-106); PROTEIN TOTAL,TP 6.7 g/dL (6.4-8.2); SODIUM,NA 139 mmol/L (140-148)
[2023-10-20 16:50] LABS: CORONAVIRUS COVID-19 NAA NEGATIVE (NEGATIVE); INFLUENZA A NAA NEGATIVE (NEGATIVE); INFLUENZA B NAA NEGATIVE (NEGATIVE); RESPIRATORY SYNCYTIAL VIR NAA NEGATIVE (NEGATIVE)
[2023-10-20 17:22] LABS: APPEARANCE,URINE CLEAR (CLEAR); BILIRUBIN,URINE NEGATIVE (NEGATIVE); COLOR,URINE YELLOW (YELLOW); GLUCOSE,URINE NEGATIVE (NEGATIVE); KETONES,URINE NEGATIVE (NEGATIVE); LEUKOCYTE ESTERASE,URINE NEGATIVE (NEGATIVE); NITRITE,URINE NEGATIVE (NEGATIVE); OCCULT BLOOD,URINE TRACE-INTACT (NEGATIVE); PROTEIN,URINE NEGATIVE (NEGATIVE); UROBILINOGEN,URINE 0.2 EU/dL (0.2-1.0)
[2023-10-20 17:29] LABS: AMORPHOUS SEDIMENT,URINE NOT SEEN; BACTERIA,URINE NOT SEEN; EPITHELIAL CELLS,URINE RARE; MUCUS,URINE NOT SEEN; RBC,URINE 0-5 (0-5); WBC,URINE 0-5 (0-5)
== END 2023-10-20 18:16 | disposition home or self-care (01) ==
LOC: JP.ED 15:06
DX: S29.012A Strain of muscle and tendon of back wall of thorax, initial encounter (principal); K21.9 Gastro-esophageal reflux disease without esophagitis; I10 Essential (primary) hypertension; Z79.82 Long term (current) use of aspirin; Z79.899 Other long term (current) drug therapy; Z20.822 Contact with and (suspected) exposure to COVID-19; Z87.891 Personal history of nicotine dependence; X58.XXXA Exposure to other specified factors, initial encounter
CPT/HCPCS: 0241U; 36415; 71046; 80053; 81001; 85025; 99283; 99284

== ENCOUNTER 2025-04-22 15:30 | Emergency (ER) | payer BC ==
[2025-04-22 15:42] VITALS: BP 157/98; PULSE 84
[2025-04-22 15:54] LABS: BASOPHILS PERCENT AUTO 0.3 % (0.1-1.3); EOSINOPHILS ABSOLUTE AUTO 0.13 K/uL (0.00-0.40); EOSINOPHILS PERCENT AUTO 1.7 % (0.0-5.4); HEMATOCRIT 47.5 % (38.4-49.7); HEMOGLOBIN 16.5 g/dL (12.9-16.9); IMMATURE GRAN ABSOLUTE AUTO 0.06 K/uL (0.00-0.23); IMMATURE GRAN PERCENT AUTO 0.8 % (0.0-0.7); LYMPHOCYTES ABSOLUTE AUTO 2.15 K/uL (0.8-3.3); LYMPHOCYTES PERCENT AUTO 27.5 % (11.4-47.7); MEAN CORPUSCULAR HGB CONC 34.7 g/dL (31.6-35.5); MEAN CORPUSCULAR VOLUME 92.1 fL (81.4-99.0); MONOCYTES ABSOLUTE AUTO 0.75 K/uL (0.20-0.90); MONOCYTES PERCENT AUTO 9.6 % (3.3-12.6); NEUTROPHILS ABSOLUTE AUTO 4.71 K/uL (1.0-7.6); NEUTROPHILS PERCENT AUTO 60.1 % (40.0-78.1); PLATELET COUNT,PLT 159 K/uL (130-375); RED BLOOD CELL COUNT 5.16 M/uL (4.14-5.76); WHITE BLOOD CELL COUNT,WBC 7.8 K/uL (3.2-11.0)
[2025-04-22 15:55] LABS: BASOPHILS ABSOLUTE AUTO 0.02 K/uL (0.00-0.10)
[2025-04-22 16:09] LABS: ANION GAP 7.6 mmol/L (5.0-14.0); CALCIUM 9.6 mg/dL (8.5-10.1); CREATININE 0.9 mg/dL (0.8-1.3); EST CRCL DRUG DOSING (CG) 91.25 mL/min; POTASSIUM,K 4.2 mmol/L (3.6-5.2)
[2025-04-22 16:41] LABS: LYME AB IgG Negative (Negative); LYME AB IgM Negative (Negative)
== END 2025-04-22 16:53 | disposition home or self-care (01) ==
LOC: JP.ED 15:30
DX: S90.461A Insect bite (nonvenomous), right great toe, initial encounter (principal); M10.9 Gout, unspecified; I10 Essential (primary) hypertension; K21.9 Gastro-esophageal reflux disease without esophagitis; Z79.899 Other long term (current) drug therapy; W57.XXXA Bitten or stung by nonvenomous insect and other nonvenomous arthropods, initial encounter
CPT/HCPCS: 36415; 80048; 84550; 85025; 86618; 99283